=== PATIENT | male | born 1935 | race Caucasian/White ===

== ENCOUNTER 2017-09-29 11:32 | Outpatient (CLI) | payer OTHER | END 2017-09-29 17:00 | disposition home or self-care (01) | LOC: RAD 11:32 | DX: M25.561 Pain in right knee (principal); M25.562 Pain in left knee ==

== ENCOUNTER 2017-12-27 10:04 | Outpatient (CLI) | payer OTHER | END 2017-12-27 10:20 | disposition home or self-care (01) | LOC: SONOGRAMA 10:04 → MAMO-SONO 10:15 → SONOGRAMA 10:20 | DX: N20.0 Calculus of kidney (principal); R31.9 Hematuria, unspecified ==

== ENCOUNTER 2017-12-27 10:10 | Outpatient (CLI) | payer OTHER | END 2017-12-27 10:23 | disposition home or self-care (01) | LOC: RAD 10:10 | DX: N20.0 Calculus of kidney (principal); R31.9 Hematuria, unspecified ==

== ENCOUNTER 2019-05-28 07:28 | Outpatient (CLI) | payer OTHER | END 2019-05-28 09:58 | disposition home or self-care (01) | LOC: NUCLEAR 07:28 | DX: I20.9 Angina pectoris, unspecified (principal) | CPT/HCPCS: 78452; 93017; A9500; J0153 ==

== ENCOUNTER 2020-04-19 08:44 | Outpatient (CLI) | payer OTHER | END 2020-04-19 08:56 | disposition home or self-care (01) | LOC: TOM 08:44 | PROVIDERS: ATTEND Specialist | DX: K63.89 Other specified diseases of intestine (principal) ==

== ENCOUNTER 2020-04-27 14:21 | Inpatient (IN) | payer OTHER ==
[~2020-04-27] VITALS: Ht 185.4 cm; Wt 127.0 kg
[2020-04-27] MEDS ORDERED: LOSARTAN POTASS25 MG (14:51)
[2020-04-27] MEDS ORDERED: JANUVIA25 MG (14:52)
[2020-04-27] MEDS ORDERED: AMIODARONE HCL200 MG (14:52)
[2020-04-27] MEDS ORDERED: FOLIC ACID0.8 M1 (14:52)
[2020-04-27] MEDS ORDERED: ELIQUIS2.5 MG (14:53)
[2020-04-27] MEDS ORDERED: ZYLOPRIM100 M1 (14:53)
--- NOTE | 2020-04-27 14:55 | NUR ---
PTE REFERERIDO POR DR PATEL POR DOLOR ABDOMINA SE TARA S/V YSE UBIAC EN AREA DE OBSERVACION
--- NOTE | 2020-04-27 14:56 | NUR ---
FAMILIAR REFIERE ULCERA
== END 2020-04-28 16:45 | disposition expired | DRG 686 ==
LOC: ER 14:21 → SURH 16:28 → SEC-K 16:28 → SURH 16:28
PROVIDERS: ADMIT Specialist; ATTEND Internal Medicine
PROC: 30233N1 Transfusion of Nonautologous Red Blood Cells into Peripheral Vein, Percutaneous Approach (ICD-10-PCS; principal; 2020-04-27)
PROC: 4A12X4Z Monitoring of Cardiac Electrical Activity, External Approach (ICD-10-PCS; 2020-04-27)
PROC: 4A033R1 Measurement of Arterial Saturation, Peripheral, Percutaneous Approach (ICD-10-PCS; 2020-04-27)
PROC: B246ZZZ Ultrasonography of Right and Left Heart (ICD-10-PCS; 2020-04-28)
DX: C67.8 Malignant neoplasm of overlapping sites of bladder (principal); A40.8 Other streptococcal sepsis; I50.31 Acute diastolic (congestive) heart failure; J96.01 Acute respiratory failure with hypoxia; N39.0 Urinary tract infection, site not specified; R18.0 Malignant ascites; J91.0 Malignant pleural effusion; I13.0 Hypertensive heart and chronic kidney disease with heart failure and stage 1 through stage 4 chronic kidney disease, or unspecified chronic kidney disease; I48.92 Unspecified atrial flutter; B96.89 Other specified bacterial agents as the cause of diseases classified elsewhere; I48.0 Paroxysmal atrial fibrillation; E66.01 Morbid (severe) obesity due to excess calories; R57.1 Hypovolemic shock; I25.10 Atherosclerotic heart disease of native coronary artery without angina pectoris; E11.21 Type 2 diabetes mellitus with diabetic nephropathy; Z66 Do not resuscitate; D63.1 Anemia in chronic kidney disease; N18.3 Chronic kidney disease, stage 3 (moderate)